=== PATIENT | male | born 1970 | race Caucasian/White ===

== ENCOUNTER 2023-10-31 09:08 | Outpatient (AMB) | payer OTHER, SELFPAY ==
[2023-10-31 09:21] VITALS: BP 140/86; PULSE 95; TEMP 36.4; O2SAT 96; BMI 3847.0
--- NOTE | 2023-10-31 09:21 | AM.OFFWIN_ITS ---
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 He states his left eye is watering but he is able to close it, he denies any ringing in his ears, vertigo or changes in his hearing. He denies any rashes on his left side of his face or neck or head. He does state that 10 days ago he had a bug bite on his left side of his neck, he states it was a large lump but it is now gone. He denies any fevers, weakness or numbness or tingling. PFSH Social History Patient Tobacco Use Status: Never used Tobacco Review of Systems Const All systems reviewed & are unremarkable except as noted in HPI and below Physical Exam Vital Signs: Last Vital Signs Temp 97.5 F 10/31/23 09:21 Pulse 95 10/31/23 09:21 BP 140/86 H 10/31/23 09:21 Pulse Ox 96 10/31/23 09:21 Oxygen Delivery Method Room Air 10/31/23 09:21 BMI result Body Mass Index 3847.0 Const General: cooperative, healthy appearing, comfortable and no acute distress Nutritional Appearance: average body habitus Orientation/consciousness: patient oriented x3 Limitations: no limitations HEENT Other: Left side of face is drooping, forehead is as well, loss of wrinkling on forehead. Able to open and close left eye. No rashes noted. 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 Likely tick bite, sent patient for testing for Lyme as well as prescription for doxycycline for 3 weeks. Advised patient take the medication with food. Plan See above Orders: Orders Lyme IgG/IgM w/reflex to WB Today G51.0 - Barraza's palsy Medications: New doxycycline hyclate 100 mg PO BID 42 tabs 0RF Coding Level of Care Code New Pt Level 4 (47625) Diagnoses Facial nerve palsy G51.0
== END 2023-10-31 09:54 | disposition home or self-care (01) ==
PROVIDERS: Visit Provider Physician Assistant
DX: G51.0 Bell's palsy (principal)
CPT/HCPCS: 99204

== ENCOUNTER 2023-10-31 09:40 | Outpatient (REF) | payer OTHER, SELFPAY ==
[2023-11-01 13:58] LABS: Lyme Abs Screen <0.90 index
== END 2023-10-31 09:41 | disposition home or self-care (01) ==
LOC: HO.HMGCLDS 09:40
PROVIDERS: Visit Provider Physician Assistant
DX: G51.0 Bell's palsy (principal)
CPT/HCPCS: 36415; 86617; 86618